=== PATIENT | female | born 1975 | race Caucasian/White ===

== ENCOUNTER → 2020-05-25 14:06 | Outpatient (BNVA) | payer OTHER, SELFPAY | PROVIDERS: PCP Internal Medicine; Visit Provider Orthopaedic Surgery | DX: G56.01 Carpal tunnel syndrome, right upper limb (principal); M65.341 Trigger finger, right ring finger; M65.311 Trigger thumb, right thumb | CPT/HCPCS: 99202 ==

== ENCOUNTER → 2020-07-13 10:16 | Outpatient (BNVA) | payer OTHER, SELFPAY | PROVIDERS: Visit Provider Physician Assistant | DX: G56.01 Carpal tunnel syndrome, right upper limb (principal) | CPT/HCPCS: 99212 ==

== ENCOUNTER 2020-07-15 10:55 | Day surgery (SDC) | payer OTHER, SELFPAY ==
[2020-07-14 09:37] VITALS: BMI 45.7
[2020-07-15 11:19] VITALS: BP 115/69; PULSE 104; RESP 18; TEMP 36.9; O2SAT 97
[2020-07-15 14:00] VITALS: BP 131/81; PULSE 89; RESP 20; TEMP 36.4; O2SAT 99
--- NOTE | 2020-07-15 14:16 | P.OP_ITS ---
Operative Note Operative Note Date of Service: 07/15/20 Narrative: Preop diagnosis: 1. Right Carpal tunnel syndrome 2. Right ring finger trigger finger Postop diagnosis: 1. Right Carpal tunnel syndrome 2. Right ring finger trigger finger Procedure: 1. Right Carpal tunnel release 2. Right ring finger A1 dangelo release Surgeon: Minna Mahoney MD Anesthesia: local block using 1% lidocaine with epinephrine Findings: Thickened transverse carpal ligament. EBL: Less than 5 mL Specimens: None Complications: None Disposition: Brought to recovery room in stable condition Plan: Follow-up for 7-10 days for wound check and suture removal Indications: The patient is 44 years old, with right carpal tunnel syndrome and a right ring finger trigger finger that has been unresponsive to nonoperative management. The risks and benefits of operative treatment in cluding but not limited to risk of damage to blood vessels, nerves, tendons, infection, persistent pain, persistent symptoms, or possible need for additional surgery were discussed with the patient and the patient wishes to proceed with surgery. Procedure: Once consent was obtained a local block was performed using a combination of 1% lidocaine with epinephrine. The patient was then brought back to the operating suite and placed on the operative table in supine position. A tourniquet was applied to the proximal aspect of the right upper extremity and the limb was prepped and draped in a standard surgical fashion. Once assured that we had a good block, a 1.5 cm oblique incision was made centered over the A1 dangelo of the right ring finger . The incision was made through the skin to the subcutaneous tissues using a #15 blade. Careful dissection was made down to the level of the A1 dangelo using tenotomy scissors, with care being taken to protect the nearby neurovascular structures. A longitudinal incision was made in the A1 dangelo 1st using a #15 blade, then using tenotomy scissors under direct visualization. The A1 dangelo was noted to be thickened. Following our A1 dangelo release, we no longer saw any locking or catching of the digit with flexion and extension. Once assured that we had a good block, a 1.5 cm longitudinal incision was made centered over the right carpal tunnel. The incision was made through the skin to the subcutaneous tissues using a #15 blade. Dissection was made down to the level of the transverse carpal ligament with care being taken to protect the palmar cutaneous nerve. Once the transverse carpal ligament was clearly visualized, a longitudinal incision was made in the transverse carpal ligament 1st using a #15 blade, then using tenotomy scissors under direct visualization. Care was taken to look for and protect the motor branch of the median nerve when seen in this area. Once satisfied with our carpal tunnel release the wound was copiously irrigated with normal saline and hemostasis was obtained with a brief period of local pressure. The skin edges were reapproximated with some 5.0 nylon suture material and a sterile dressing was applied. The patient appears to have tolerated the procedure well and with no complications. All digits were well vascularized at the conclusion of the case.
--- NOTE | 2020-07-15 14:16 | MHC.SHP ---
Pre-Procedural Eval Section B Chief Complaint: carpal tunnel trigger finger Allergies: Allergies Allergy/AdvReac Type Severity Reaction Status Date / Time acetaminophen [From Percocet] Allergy Mild Unknown Verified 07/13/20 10:32 hydrocodone [From Vicodin] Allergy Mild Unknown Verified 07/13/20 10:32 oxycodone [From Percocet] Allergy Mild Unknown Verified 07/13/20 10:32 Plan I have reviewed the history and physical and performed a pertinent physical examination on my patient. No changes have occurred unless specified.
== END 2020-07-15 14:30 | disposition home or self-care (01) ==
PROVIDERS: Visit Provider Orthopaedic Surgery
PROC: (CPT 64721; principal; 2020-07-15 12:30)
DX: G56.01 Carpal tunnel syndrome, right upper limb (principal); M65.341 Trigger finger, right ring finger; Z79.899 Other long term (current) drug therapy; Z88.8 Allergy status to other drugs, medicaments and biological substances; Z87.891 Personal history of nicotine dependence
CPT/HCPCS: 64721; 26055

== ENCOUNTER → 2020-07-26 09:58 | Outpatient (BNVA) | payer OTHER, SELFPAY | PROVIDERS: Visit Provider Orthopaedic Surgery | DX: M65.341 Trigger finger, right ring finger (principal); G56.01 Carpal tunnel syndrome, right upper limb | CPT/HCPCS: 99212 ==

== ENCOUNTER → 2021-08-09 15:07 | Outpatient (BNVA) | payer OTHER, SELFPAY | PROVIDERS: PCP Internal Medicine; Visit Provider Nurse Practitioner Family | DX: G43.009 Migraine without aura, not intractable, without status migrainosus (principal); E66.01 Morbid (severe) obesity due to excess calories | CPT/HCPCS: 99202 ==

== ENCOUNTER 2022-08-08 09:27 | Outpatient (REF) | payer OTHER, SELFPAY ==
--- NOTE | ~2022-08-08 | XR_ITS ---
EXAMINATION: XR WRIST, LEFT CLINICAL INFORMATION: Pain COMPARISON: None available. TECHNIQUE: Three views of the left wrist. FINDINGS: Acute to subacute appearing transversely oriented fracture of the distal radial metaphysis. Joint spaces are maintained. Mild soft tissue swelling about the wrist. XR/XR wrist LT min 3V IMPRESSION: Acute to subacute appearing transversely oriented fracture of the distal radial metaphysis. Mild soft tissue swelling about the wrist.
== END 2022-08-08 09:28 | disposition home or self-care (01) ==
LOC: HO.HOSX 09:27
PROVIDERS: Visit Provider Orthopaedic Surgery
DX: S52.502A Unspecified fracture of the lower end of left radius, initial encounter for closed fracture (principal)
CPT/HCPCS: 73110; 99212

== ENCOUNTER 2022-09-26 08:05 | Outpatient (REF) | payer OTHER, SELFPAY | END 2022-09-26 08:06 | disposition home or self-care (01) | LOC: HO.HOSX 08:05 | PROVIDERS: Visit Provider Orthopaedic Surgery | DX: Z13.89 Encounter for screening for other disorder (principal) ==